=== PATIENT | female | born 1955 | race Caucasian/White ===

== ENCOUNTER 2017-01-10 07:51 | Day surgery (SDC) | payer OTHER ==
[~2017-01-10] VITALS: Ht 157.5 cm; Wt 64.2 kg
[2017-01-10] VITALS (9 sets, daily range): BP systolic 101–140; BP diastolic 63–78; PULSE 65–79; RESP 14–21; Ht 157.5 cm; Wt 64.2 kg
[~2017-01-10 07:51] MED LIST: EZET10TA3 PO; HYDR5TAB PO; LEVO100T82 PO; METF1000 PO; SIMV20TA PO
[2017-01-10] MEDS ORDERED: HYDR5TAB PO ×2 (08:26)
[2017-01-10] MEDS ORDERED: PROCHLORPERAZINE 10 MG INJ IV PRN (08:30)
[2017-01-10] MEDS ORDERED: OXYCODONE/ACETAMINOPHEN (5/325) TAB PO PRN ×2 (08:30)
[2017-01-10] MEDS ORDERED: MEPERIDINE 25 MG INJ IV PRN (08:30)
[2017-01-10] MEDS ORDERED: MOXIFLOXACIN 0.5% 3 ML OPH OPER SCH (08:30)
[2017-01-10] MEDS ORDERED: NEPAFENAC 0.1% 3 ML OPH OPER SCH (08:30)
[2017-01-10] MEDS ORDERED: ONDANSETRON 4 MG INJ IV PRN (08:30)
[2017-01-10] MEDS ORDERED: CYCLOPENTOLATE 2% 2 ML OPH OPER SCH (08:30)
[2017-01-10] MEDS ORDERED: FENTAnyl 50 MCG/ML VIAL IV PRN (08:30)
[2017-01-10] MEDS ORDERED: DIPHENHYDRAMINE 50 MG INJ IV PRN (08:30)
[2017-01-10] MEDS ORDERED: PHENYLephrine 10% 5 ML OPH OPER SCH (08:30)
[2017-01-10] MEDS ORDERED: BUPIVACAINE 0.75% (MPF) 10 ML INJ ONE (08:40)
[2017-01-10] MEDS ORDERED: LIDOCAINE 1% (MPF) 10 ML INJ ONE (08:40)
[2017-01-10] MEDS ORDERED: SODIUM BICARBONATE (IV ADD) 50 ML ONE (08:40)
[2017-01-10] MEDS ORDERED: TIMOLOL 0.5% 5 ML OPH ONE (08:40)
--- NOTE | 2017-01-10 08:43 | HPN ---
Date/Time of Note Date/Time of Note DATE: 01/10/17 TIME: 08:43 Interval H&P Admission Note Pt. seen H&P reviewed: No system changes VERO WALKER MD Jan 10, 2017 08:43
[2017-01-10] MEDS ORDERED: MIDAZOLAM 1 MG/ML 2 ML INJ ONE (09:26)
[2017-01-10] MEDS ORDERED: LIDOCAINE 1% (MPF) 5 ML VIAL INJ ONE (10:05)
[2017-01-10] MEDS ORDERED: TIMOLOL 0.5% 5 ML OPH RIGHT EYE ONE (10:06)
[2017-01-10] MEDS ORDERED: ONDANSETRON 4 MG INJ ONE (10:30)
--- NOTE | 2017-01-10 19:25 | OPR ---
DATE OF OPERATION: 01/10/2017 SURGEON: Vero Coleman MD ANALYTICS CONSULTANT: None. PREOPERATIVE DIAGNOSIS: Senile nuclear sclerotic cataract, right eye. POSTOPERATIVE DIAGNOSIS: Senile nuclear sclerotic cataract, right eye. OPERATION: Kelman phacoemulsification with implantation of intraocular lens, right eye. PROCEDURE: Following standard preparation and draping of the patient, an aspirating lid speculum wa s placed for immobilization of the lids. A Superblade incision was made for access into the anterior chamber. Approximately 0.5 ml of 1% unpreserved Xylocaine was instilled into the anterior chamber, and after approximately 15 seconds, this was replaced with Viscoat. A clear corneal incision was then made using the 3.2 mm keratome, following which an anterior circul ar capsulorrhexis was made. The major portion of the lens cortex and nucleus was then dislocated fro m the capsular bag using hydrodissection. The KPE tip was introduced into the eye, and controlling m ovements of the lens with a two-handed technique, the major portion of the lens cortex and nucleus w as removed, maintaining the lens in the plane of the iris. The remaining cortical material was remov ed via the irrigating-aspirating instrument. The capsular bag and the anterior chamber were re-forme d using Viscoat. The proper power lens was then placed within the capsular bag. The viscoelastic was then removed from the eye and the eye re-formed with balanced salt solution. One 10-0 Vicryl suture was then used to ensure closure of the corneal incision. The eye was re-forme d to normal pressure using balanced salt solution. The eye and cul-de-sacs were now simply flooded w ith 5% Betadine solution. One drop of Vigamox and one drop of Betagan solution were instilled into the eye. A light pressure d ressing was applied, and the patient was returned to the recovery room in satisfactory condition. Dictated By: VERO BREAUX/ABDI Conf#: [id number] DID#: [id number]
== END 2017-01-10 11:43 | disposition home or self-care (01) ==
LOC: SDS 07:51
PROVIDERS: ATTEND Ophthalmology
DX: H25.11 Age-related nuclear cataract, right eye (principal); E11.9 Type 2 diabetes mellitus without complications; E78.5 Hyperlipidemia, unspecified; E03.9 Hypothyroidism, unspecified
CPT/HCPCS: 66984; 82962; J2250; J2405; V2632; Z7512; Z7610

== ENCOUNTER 2017-01-24 05:48 | Day surgery (SDC) | payer OTHER ==
[2017-01-24] VITALS (10 sets, daily range): BP systolic 116–153; BP diastolic 66–82; PULSE 68–76; RESP 16–60; Ht 160 cm; Wt 65.0 kg
[~2017-01-24] VITALS: Ht 160 cm; Wt 65.0 kg
[~2017-01-24 05:48] MED LIST changes: -EZET10TA3 PO; +FLURBIPROFEN 0.03% BOTH EYES SCH; +FLURBIPROFEN 0.03% OPER SCH; +PHENYLephrine 10% 5 ML OPH OPER SCH; +TOBRAMYCIN/DEXAMETH 2.5 ML OPH OPER SCH
[2017-01-24] MEDS ORDERED: TIMOLOL 0.5% 5 ML OPH ONE (06:41)
[2017-01-24] MEDS ORDERED: BUPIVACAINE 0.75% (MPF) 10 ML INJ ONE (06:41)
[2017-01-24] MEDS ORDERED: EPINEPHrine 1 MG INJ ONE (06:41)
[2017-01-24] MEDS ORDERED: LIDOCAINE 1% (MPF) 10 ML INJ ONE (06:41)
[2017-01-24] MEDS ORDERED: SODIUM BICARBONATE (IV ADD) 50 ML ONE (06:42)
[2017-01-24] MEDS ORDERED: LIDOCAINE 2% (SDV) 5 ML INJ ONE (06:43)
[2017-01-24] MEDS ORDERED: DICLOFENAC 0.1% 2.5 ML OPH RIGHT EYE ONE (06:50)
--- NOTE | 2017-01-24 06:58 | HPN ---
Date/Time of Note Date/Time of Note DATE: 01/24/17 TIME: 06:58 Interval H&P Admission Note Pt. seen H&P reviewed: No system changes VERO WALKER MD Jan 24, 2017 06:58
[2017-01-24] MEDS ORDERED: CARBACHOL 0.01% 1.5 ML OPH INJ ONE (07:05)
[2017-01-24] MEDS ORDERED: LIDOCAINE 1% (MPF) 10 ML INJ INJ ONE (07:15)
[2017-01-24] MEDS ORDERED: PROPOFOL 20 ML ONE (07:21)
[2017-01-24] MEDS ORDERED: TIMOLOL 0.5% 5 ML OPH RIGHT EYE ONE (07:45)
[2017-01-24] MEDS ORDERED: FENTAnyl 50 MCG/ML VIAL ONE (07:53)
[2017-01-24] MEDS ORDERED: METOCLOPRAMIDE 10 MG INJ IV PRN (08:00)
[2017-01-24] MEDS ORDERED: MEPERIDINE 25 MG INJ IV PRN (08:00)
[2017-01-24] MEDS ORDERED: ONDANSETRON 4 MG INJ IV PRN (08:00)
[2017-01-24] MEDS ORDERED: DIPHENHYDRAMINE 50 MG INJ IV PRN (08:00)
[2017-01-24] MEDS ORDERED: HYDROmorphONE (0.2 MG/ML) 10ML SYG IV PRN ×3 (08:00)
[2017-01-24] MEDS ORDERED: FENTAnyl 50 MCG/ML VIAL IV PRN ×2 (08:00)
--- NOTE | 2017-01-24 11:57 | OPR ---
DATE OF OPERATION: 01/24/2017 PREOPERATIVE DIAGNOSIS: Dislocated posterior chamber intraocular lens. POSTOPERATIVE DIAGNOSIS: Dislocated posterior chamber intraocular lens. PROCEDURE: Reposition dislocated lens. DESCRIPTION OF PROCEDURE: Following standard preparation and draping of the patient, a speculum was placed for immobilization of the lids. The was positioned at the 12 o'clock position anterio r to the iris. A 1 mm incision was made into the anterior chamber at the posterior limbal region. A small amount of nonpreserved anesthetic was placed in the eye, following which a small amount of V iscoat was placed in the eye for control of the anterior chamber. A cystotome was now placed throug h the same incision, and with gentle pressure on the lens, the haptic was simply spun into the posit ion behind the iris into the ciliary sulcus. The anterior chamber now was reformed with balanced sa lt solution until the eye was normotensive. Gentle pressure on the 1 incision did not reveal any fl uid leaking from the incision. One drop of Vigamox was placed in the eye and 1 drop of ketorolac we re placed in the eye. The eye was patched and the patient returned to the recovery room in satisfac tory condition Dictated By: VERO BREAUX/ABDI Conf#: [id number] DID#: [id number]
[2017-01-28] MEDS ORDERED: GLYCOPYRROLATE 1 MG INJ ONE (13:42)
[2017-01-28] MEDS ORDERED: PROPOFOL 20 ML ONE (13:42)
[2017-01-28] MEDS ORDERED: SUCCINYLCHOLINE CHLORIDE 100 MG/5 ML SYG IV ONE (13:42)
[2017-01-28] MEDS ORDERED: ROCURONIUM 50 MG INJ ONE (13:42)
[2017-01-28] MEDS ORDERED: NEOSTIGMINE 3 MG/3 ML SYRINGE ONE (13:42)
== END 2017-01-24 09:00 | disposition home or self-care (01) ==
LOC: SDS 05:48
PROVIDERS: ATTEND Ophthalmology
DX: T85.22XA Displacement of intraocular lens, initial encounter (principal); Y83.8 Other surgical procedures as the cause of abnormal reaction of the patient, or of later complication, without mention of misadventure at the time of the procedure; Y92.89 Other specified places as the place of occurrence of the external cause; E11.9 Type 2 diabetes mellitus without complications
CPT/HCPCS: 66825; 82962; J0171; J2765; J3010; Z7512; Z7610

== ENCOUNTER 2018-02-22 23:11 | Inpatient (IN) | END 2018-03-01 17:47 | disposition home or self-care (01) | DRG 641 ==

== ENCOUNTER 2018-05-29 18:43 | Emergency (ER) | END 2018-05-29 22:51 | disposition home or self-care (01) ==

== ENCOUNTER 2018-06-14 10:08 | Emergency (ER) | END 2018-06-14 14:58 | disposition home or self-care (01) ==